=== PATIENT | male | born 1955 | race Caucasian/White ===

== ENCOUNTER 2021-06-25 11:09 | Outpatient (CLI) | payer MEDICARE, OTHER, SELFPAY ==
--- NOTE | 2021-06-25 11:00 | DI.RAD_ITS ---
Exam(s) XR KNEE RT 3V AP,LAT,VELASQUEZ EXAM: XR KNEE RT 3V AP,LAT,VELASQUEZ CLINICAL HISTORY: RIGHT KNEE PAIN. TECHNIQUE: 2D digital imaging was performed. COMPARISON: No exams were available for comparison FINDINGS: No evidence of fracture or prominent joint effusion. Mild degenerative changes are noted in the medi al compartment. Lateral compartment appears unremarkable. Bone density normal. No osseous lesions. IMPRESSION: Mild-moderate degenerative changes in the medial compartment. DATA REPOSITORY: RADIATION DOSE DELIVERED:
== END 2021-06-25 11:10 | disposition home or self-care (01) ==
LOC: DIORS 11:09
PROVIDERS: Visit Provider Student in an Organized Health Care Education/Training Program
DX: M25.561 Pain in right knee (principal); M17.11 Unilateral primary osteoarthritis, right knee
CPT/HCPCS: 20610; 73562; 99203; J1040

== ENCOUNTER 2024-01-07 18:04 | Inpatient (IN) | payer MEDICARE, OTHER, SELFPAY ==
[2024-01-07] VITALS (218 sets, daily range): BP systolic 113–170; BP diastolic 58–108; PULSE 42–87; RESP 11–23; TEMP 36.2–37.7; O2SAT 98–99
--- NOTE | 2024-01-07 18:00 | RT.EKG_ITS ---
APPROVED REPORT Exam: Resting ECG Reason for Exam: Chest Pain Patient Location: E HR:45 bpm ECG Measurements Heart Rate 45 AXIS AZ 289 P 80 QRSd 121 QRS 124 QT 488 T 40 QTc 423 Conclusion Sinus bradycardia...rate< 60 Prolonged AZ interval...AZ >230, V-rate 30- 49 Probable left atrial enlargement...P >50mS, <-0.10mV V1 Nonspecific intraventricular conduction delay...QRSd >115mS, not LBBB/RBBB
--- NOTE | 2024-01-07 18:15 | DI.RAD_ITS ---
Exam(s) XR CHEST 2V PA LATERAL EXAM: XR CHEST 2V PA LATERAL CLINICAL HISTORY: CP, SOB TECHNIQUE: 2D digital imaging was performed. Two views. COMPARISON: No exams were available for comparison FINDINGS: HEART: Normal size. Aorta: Not dilated. PULMONARY VASCULATURE: Normal. MEDIASTINUM: Unremarkable. LUNGS: Clear. PLEURAL SPACE: No pleural effusion or pneumothorax. BONE:Unremarkable for age. SOFT TISSUES: Unremarkable. IMPRESSION: No acute abnormality. DATA REPOSITORY: RADIATION DOSE DELIVERED:
--- NOTE | 2024-01-07 18:29 | W.ED.GENAD ---
Discharge Plan Discharge Details Chief Complaint: Chest Pain Admit Date/Time: 01/07/24 22:13 Admit Provider: Shadi Emmanuel Attending Provider: Shadi Emmanuel Primary Care Provider: [place] ED Provider: Trinh Ferraro Discharge Data Discharge Date/Time-TO BE ENTERED AT DEPARTURE: 01/07/24 23:30 HPI General Date/Time Provider Initiated Documentation: 01/07/24 18:14. HPI Narrative: Shadi is a 68-year-old male who presents to the emergency department today for evaluation of cough accompanied by shortness of breath and exertion x 3 weeks and left-sided chest pain x 1 week. He reports that he had viral symptoms including chills, headache, sore throat, mild cough 1 month ago, a few days after this resolved he developed a cough which has been persistent since then. This is a nonproductive cough, occasional scant sputum coughed up, no hemoptysis. He does have some shortness of breath with exertion only, none at rest. He reports he was taking trenches, attributes this to the left-sided chest pain that is worsened with standing or deep breathing, some movement. He denies recent fever/chills, dizziness, congestion, sore throat, nausea/vomiting, abdominal pain, change in bowel or bladder function, pedal edema, calf redness/swelling/tenderness, no recent surgery. No recent malignancy, immobility/surgery, hormone use, history of blood clots. Continue to have prostate cancer, has pain in remission 10 years. Denies significant past medical history, has been diagnosed with hyperlipidemia but is unable to tolerate statins.. Denies any insomnia for which he takes Lunesta and mirtazapine. Denies tobacco use Physical exam reassuring. Easy work of breathing, lung sounds clear bilaterally. Normal heart sounds. No obvious JVD or pedal edema. No chest wall tenderness with palpation or obvious deformity/ecchymosis or skin lesions. Abdomen is soft, nondistended, nontender to palpation. No calf redness/swelling/tenderness. Heart rate in the 70s on the monitor. DDx includes but is not limited to: Pneumonia, postviral bronchitis, ACS, cardiac arrhythmia, lyme endocarditis, electrolyte imbalance, chest wall pain/costochondritis. Heart score 3 indicating low risk of Mace. Wells score 0. I independently interpreted the following tests: EKG upon arrival @ 1733 notable for sinus bradycardia rate 45 with first-degree heart block, NM interval 294. Repeat EKG at 1837 shows accelerated junctional rhythm with rate 82, no changes consistent with acute ischemia. Troponin elevated at 194. CBC, CMP, TSH, phosphorus, coags all unremarkable. Chest x-ray reassuring, no acute cardiopulmonary changes. This was confirmed by radiologist. While in the emergency department she received 324 mg baby aspirin chewable and heparin initiated. He is currently chest pain-free. 2044: Discuss[place]. [place], [facility] [place]. He recommends atorvastatin 80 mg, Plavix 600 mg. Patient accepted for cardiology services. Care of Dr. Carnes; listing in the a.m. (may be transferred from [facility] unit) Presented case to Dr. Emmanuel, [facility] hospitalist. Pt to be admitted to ICU for observation until [place] [facility] [place] the [place]. Pt is agreeable with plan of care. Related Data Home Medications ?Medication ?Instructions ?Recorded ?Confirmed doxepin 10 mg capsule 10 mg PO DAILY 06/25/21 06/25/21 eszopiclone 3 mg tablet (Lunesta) mg PO QHS 06/25/21 06/25/21 Allergies Allergy/AdvReac Type Severity Reaction Status Date / Time aspirin Allergy diaphoresis Verified 06/25/21 10:53 General Stated Complaint: Chest Pain TIKA: 3 Review of Systems Narrative: see HPI Exam Const General: cooperative, healthy appearing, comfortable and no acute distress Nutritional Appearance: average body habitus HENCA Head: normal to inspection Neck Neck: normal visual inspection and no JVD Chest Chest: normal inspection of the chest and normal palpation of entire chest wall Resp Effort & Inspection: normal respiratory effort and able to speak in complete sentences Auscultation: clear to auscultation bilaterally Cardio Rate: regular rate Rhythm: regular rhythm Pulses: radial pulses present GI Inspection: normal to inspection and non-distended Palpation: soft and nontender Extrem General: no pedal edema, no calf tenderness and normal gait Course Vital Signs Vital signs: Vital Signs Respiratory Rate 16 01/07/24 18:10 Temperature 36.2 C L 01/07/24 18:13 Temperature Source Temporal Artery Scan 01/07/24 18:13 Pulse 45 L 01/07/24 18:13 Pulse 44 L 01/07/24 18:11 Respiratory Rate 16 01/07/24 18:13 Respiratory Effort Normal, Non-Labored, Short of Breath 01/07/24 18:15 Blood Pressure 170/91 H 01/07/24 18:13 Blood Pressure Mean 117 01/07/24 18:11 Blood Pressure Position Supine 01/07/24 18:13 Pulse Oximetry 98 01/07/24 18:13 Oxygen Delivery Method Room Air 01/07/24 18:13 Oxygen Flow Rate 0 01/07/24 18:13 Pain Level 3 01/07/24 18:13 Comment when coughing 01/07/24 18:13 Medical Decision Making Quality:SDOH Health Related Social Needs: No Data to Display PFSH All Active Problems (Updated 01/07/24 @ 22:12 by Shadi Emmanuel) Hyperlipidemia (Chronic) First degree atrioventricular block (Acute) Junctional bradycardia (Acute) NSTEMI (non-ST elevated myocardial infarction) (Acute) Primary osteoarthritis of right knee (Acute) Surgical History History of right shoulder replacement x2 Social History Smoking/Tobacco Use Status: Never Smoking risk assessment performed?: Yes Alcohol Intake: current Alcohol Intake frequency: holidays/special occasions only Alcohol type: beer Drug use: Never Substance use type: does not use Housing: house Do you feel safe at home: Yes Do you feel safe in your relationship?: Yes Additional Social history: at side, very supportive
--- NOTE | 2024-01-07 18:30 | RT.EKG_ITS ---
APPROVED REPORT Exam: Resting ECG Reason for Exam: Chest Pain Patient Location: E HR:82 bpm ECG Measurements Heart Rate 82 AXIS WA [id number] P [id number] QRSd 114 QRS 98 QT 426 T -14 QTc 499 Conclusion Accelerated junctional rhythm...absent P waves, accele'd V-rate Incomplete right bundle branch block...QRSd >112, terminal axis(90,270)
[2024-01-07 18:41] LABS: Abs Immature Grans 0.04 10^3/uL (0.0-0.06); Absolute Basophil Count 0.03 10^3/uL (0.0-0.2); Absolute Eosinophil Count 0.29 10^3/uL (0.0-0.7); Absolute Lymphocyte Count 1.63 10^3/uL (1.2-3.4); Absolute Neutrophil Count 5.14 10^3/uL (1.2-6.7); Basophils % 0.4 %; Eosinophils % 3.8 %; HCT 44.3 % (40.0-50.0); HGB 14.7 g/dL (13.5-17.5); Immature Grans % 0.5 %; Lymphocytes % 21.1 %; MCH 30.4 pg (27.0-33.0); MCHC 33.2 % (32.0-36.0); MCV 92 fL (80-95); Monocytes % 7.8 %; Neutrophils % 66.4 %; RBC 4.83 10^6/uL (4.36-5.78); RDW 13.5 % (11.8-14.1); RDW-SD 45.7 fL; WBC 7.73 10^3/uL (4.4-10.8)
--- NOTE | 2024-01-07 19:00 | RT.EKG_ITS ---
APPROVED REPORT Exam: Resting ECG Reason for Exam: abnormal EKG Patient Location: E HR:80 bpm ECG Measurements Heart Rate 80 AXIS GA [id number] P [id number] QRSd 112 QRS 101 QT 418 T 4 QTc 483 Conclusion Accelerated junctional rhythm...absent P waves, accele'd V-rate Incomplete right bundle branch block...QRSd >112, terminal axis(90,270)
[2024-01-07] MEDS: Normal Saline 1,000 ML 1000 ML IV (19:08)
[2024-01-07 19:29] LABS: PHOSPHORUS 3.2 mg/dL (2.6-4.7)
[2024-01-07 19:42] LABS: ALT 41 U/L (16-63); AST 22 U/L (15-37); Albumin 3.5 g/dL (3.4-5.0); Alkaline Phosphatase 98 U/L (46-116); Anion Gap 9.5 mmol/L (3-11); BUN 19 mg/dL (7-18); Bilirubin, Total 0.36 mg/dL (0.2-1.0); CO2 25.5 mmol/L (21.0-32.0); CREATININE 1.2 mg/dL (0.70-1.30); Calcium 8.6 mg/dL (8.5-10.1); Chloride 109 mmol/L (98-107); Estimated GFR 65.46 (mL/min/1.73m2); Glucose 108 mg/dL (74-106); Magnesium 2.1 mg/dL (1.8-2.4); Potassium 3.9 mmol/L (3.5-5.1); Sodium 144 mmol/L (136-145); TSH (W/Ref FT4) 3.36 uIU/mL (0.36-3.74); Total Protein 7.8 g/dL (6.4-8.2)
[2024-01-07 19:43] LABS: Troponin I 194 ng/L (< or =60)
--- NOTE | 2024-01-07 19:45 | RT.EKG_ITS ---
APPROVED REPORT Exam: Resting ECG Reason for Exam: PER ARIAN SCOTT Patient Location: E HR:83 bpm ECG Measurements Heart Rate 83 AXIS MN [id number] P [id number] QRSd 112 QRS 97 QT 413 T -11 QTc 485 Conclusion Accelerated junctional rhythm...absent P waves, accele'd V-rate Incomplete right bundle branch block...QRSd >112, terminal axis(90,270)
[2024-01-07] MEDS: Heparin in 0.45% NaCl 25,000 UNIT/250 ML BAG 10 UNIT IV (20:14)
--- NOTE | 2024-01-07 20:29 | DI.VRAD_ITS ---
PROCEDURE INFORMATION: Exam: XR Chest Exam date and time: 01/07/2024 7:34 PM Age: 68 years old Clinical indication: Shortness of breath; Chest wall pain; Additional info: ESTHER Dickens TECHNIQUE: Imaging protocol: Radiologic exam of the chest. Views: 2 views. COMPARISON: No relevant prior studies available. FINDINGS: Lungs: Unremarkable. No consolidation. Pleural spaces: Unremarkable. No pleural effusion. No pneumothorax. Heart/Mediastinum: Unremarkable. No cardiomegaly. Bones/joints: Mild degenerative changes of the midthoracic spine. No vertebral body compression or acute fracture. Right humeral head prosthesis in place. IMPRESSION: No acute disease Dictated and Authenticated by: Christiano Lanier MD. Ordering:MARY ANN Tsang MD
[2024-01-07 20:30] LABS: PTT Activated 25.9 sec (23.6-32.8); Prothrombin Time 10.4 sec (9.1-11.1)
--- NOTE | 2024-01-07 21:59 | W.PM.HP.N ---
Date of service: 01/07/24 Time of Service: 22:00 Assessment and Plan Assessment and plan (1) NSTEMI (non-ST elevated myocardial infarction): Start date: 01/07/24 Status: Acute Assessment and plan: This is a 68-year-old gentleman who has had gradual onset of symptoms with exertional chest discomfort and elevated troponin after evaluation in the ED presenting with his chest discomfort. 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 Stat EKG and chest x-ray were ordered and will be reviewed with update to [facility] if a change status. He appears to be comfortable at this time and chest pain-free with no symptoms. He is on heparin infusion and did receive aspirin with Plavix loading dose along with high-dose atorvastatin. He is excepted for transfer to [facility] when bed. See ED note for accepting physician. He is a full code. (2) Junctional bradycardia: Start date: 01/07/24 Status: Acute Assessment and plan: Transient and resolved the patient persists with first-degree AV block and bradycardia until episode of vagal response. He is tachycardic. He is not on beta-arslan, monitor while awaiting transfer. (3) First degree atrioventricular block: Start date: 01/07/24 Status: Acute Assessment and plan: Continue monitoring awaiting transfer. When he did have a vagal response and hypotension he was tachycardic and bradycardic therefore atropine was given. (4) Hyperlipidemia: Status: Chronic Assessment and plan: Check lipids in the morning and give high-dose atorvastatin. Qualifiers: Hyperlipidemia type: other hyperlipidemia Qualified Code(s): E78.49 - Other hyperlipidemia History of Present Illness History of Present Illness Chief Complaint: Exertional chest pain for 1 week with LEWIS and cough for 3 weeks Narrative: This is a 68-year-old male patient who had a sore throat and upper respiratory symptoms about 1 month ago and then began to have a cough with increasing shortness of breath with exertion over the last 3 weeks. He has had left-sided chest pain for the last week with exertion. It is mostly nonproductive with scant sputum no hemoptysis. He had no shortness of breath at rest and no fever or chills or abdominal symptoms. He has had no symptoms. He had prostate cancer 10 years ago which is in remission. He has a history of hyperlipidemia not on treatment because of intolerance to statins. He does have insomnia for which he takes Remeron and Lunesta. He is not a smoker. 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 His chest it was also worsened with movement and deep breathing being upright. He was chest pain-free at the time of my visit and was speaking comfortably. Overnight he was well but in the morning when he had a blood draw he had a sudden onset of nausea with diaphoresis but no chest pain. His blood pressure dropped though his pulse increased with sinus bradycardia and first-degree AV block mostly at night. He did not have any junctional rhythms during the night. He has the heparin for non-STEMI from the ED after discussion with [facility] with plan for transfer to [facility] when bed is available for cardiac catheterization. I will call [facility] update with his recent vagal response with the phlebotomy the morning after admission. He is a full code. Review of Systems Narrative: 13 point review of systems otherwise unrevealing or stable. Patient minimizes his symptoms. PFSH All Active Problems (Updated 01/08/24 @ 00:01 by Trinh Coleman) Hyperlipidemia (Chronic) First degree atrioventricular block (Acute) Junctional bradycardia (Acute) NSTEMI (non-ST elevated myocardial infarction) (Acute) Primary osteoarthritis of right knee (Acute) Surgical History History of right shoulder replacement x2 Social History Smoking/Tobacco Use Status: Never Smoking risk assessment performed?: Yes Alcohol Intake: current Alcohol Intake frequency: holidays/special occasions only Alcohol type: beer Drug use: Never Substance use type: does not use Housing: house Do you feel safe at home: Yes Do you feel safe in your relationship?: Yes Additional Social history: at side, very supportive Meds Allergies and Home Medications Allergies Allergy/AdvReac Type Severity Reaction Status Date / Time aspirin Allergy diaphoresis Verified 06/25/21 10:53 Home Medications ?Medication ?Instructions ?Recorded ?Confirmed ?Type atorvastatin 10 mg tablet 10 mg PO QPM hyperlipidemia 01/08/24 01/08/24 History eszopiclone 2 mg tablet 2 mg PO QPM 01/08/24 01/08/24 History Exam Narrative Exam Narrative: General: Patient appears older than stated age, alert and oriented x 3 and jovial during conversation even after his vagal event. He is in no acute distress at time of my initial exam with moderate distress with episode of diaphoresis hypotension with resolution quickly after onset. He did not complain of chest pain. HEENT: Normocephalic, coarsened facial features, eyes with pupils equal and react light symmetrically, extraocular movement intact and sclera anicteric. Oropharynx with moist Koza and fair dentition. Neck: Supple without JVD. Back: Stooped posture without CVA tenderness. Lungs: Fair aeration and clear. Heart: Bradycardic rate with regular rhythm and question of gallop though this cannot be clearly identified but no murmur appreciated. No rubs. Abdomen: Normal contour, soft nontender to palpation with no palpable hepatosplenomegaly. Lower quadrant. Genitalia/rectal: Exam deferred. Extremities: Without clubbing, cyanosis or pitting edema. Joints with arthritic changes and decreased range of motion. Fair capillary refill. 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 Rough texture with actinic changes over sun exposed areas. Neuro: Cranial nerves II through XII gross intact, no focal motor deficits. No tremor. Psych: Normal affect and mood. Abnormal thought processes. Remote and recent memory intact. Results Imaging Imaging Studies: Exam: XR Chest Exam date and time: 01/07/2024 7:34 PM Age: 68 years old Clinical indication: Shortness of breath; Chest wall pain; Additional info: Maninder, ESTHER TECHNIQUE: Imaging protocol: Radiologic exam of the chest. Views: 2 views. COMPARISON: No relevant prior studies available. FINDINGS: Lungs: Unremarkable. No consolidation. Pleural spaces: Unremarkable. No pleural effusion. No pneumothorax. Heart/Mediastinum: Unremarkable. No cardiomegaly. Bones/joints: Mild degenerative changes of the midthoracic spine. No vertebral body compression or acute fracture. Right humeral head prosthesis in place. IMPRESSION: No acute disease Labs 01/07/24 18:31 01/07/24 19:07 Labs: Laboratory Results - last 24 hr 01/07/24 01/07/24 01/07/24 18:31 19:07 20:11 WBC 7.73 RBC 4.83 Hgb 14.7 Hct 44.3 MCV 92 MCH 30.4 MCHC 33.2 RDW 13.5 Plt Count MPV Immature Gran % 0.5 Neutrophils % 66.4 Lymphocytes % 21.1 Monocytes % 7.8 Eosinophils % 3.8 Basophils % 0.4 Nucleated RBC % 0.0 Absolute Neutrophils 5.14 Absolute Lymphocytes 1.63 Absolute Monocytes 0.60 Absolute Eosinophils 0.29 Absolute Basophils 0.03 PT 10.4 INR 1.0 APTT 25.9 Sodium Cancelled 144 Potassium Cancelled 3.9 Chloride Cancelled 109 H Carbon Dioxide Cancelled 25.5 Anion Gap Cancelled 9.5 BUN Cancelled 19 H Creatinine Cancelled 1.2 Est GFR (CKD-EPI 2020) Cancelled 65.46 Glucose Cancelled 108 H Calcium Cancelled 8.6 Phosphorus 3.2 Magnesium Cancelled 2.1 Total Bilirubin Cancelled 0.36 AST Cancelled 22 ALT Cancelled 41 Alkaline Phosphatase Cancelled 98 Troponin I Cancelled 194 H* Total Protein Cancelled 7.8 Albumin Cancelled 3.5 TSH Cancelled 3.36 Last Vital Signs Temp 36.2 C L 01/07/24 18:13 Pulse 56 L 01/07/24 21:16 Resp 20 01/07/24 21:27 BP 121/72 01/07/24 21:16 Pulse Ox 98 01/07/24 18:13 Time Spent Time spent with Patient: >75 minutes Time was spent: preparing to see the patient(eg.review tests), obtaining and/or reviewing separately otained hiistory, ordering medications,tests, procedures, referring, communicating with other health health care liaison, indepentently interpreting results, counseling the patient and care coordination
[2024-01-07] MEDS: Clopidogrel 300 MG TAB 600 MG PO (22:06)
[2024-01-07 22:09] LABS: Troponin I 177 ng/L (< or =60)
[2024-01-07] MEDS: Atorvastatin 40 MG TAB 80 MG PO (23:04)
[2024-01-08] VITALS (80 sets, daily range): BP systolic 84–154; BP diastolic 50–76; PULSE 38–78; RESP 11–24; TEMP 36.8–37.9; O2SAT 90–98
[2024-01-08] MEDS: Mirtazapine 15 MG TAB 22.5 MG PO (01:29)
[2024-01-08] MEDS: Eszopiclone 3 MG TAB PO (01:32)
[2024-01-08 01:58] LABS: COVID-19 PCR Negative (Negative); Influenza A PCR Negative (Negative); Influenza B PCR Negative (Negative); RSV PCR Negative (Negative); Source Nasopharynx
[2024-01-08 02:30] LABS: PTT Activated 41.7 sec (23.6-32.8)
[2024-01-08 02:36] LABS: Troponin I 178 ng/L (< or =60)
--- NOTE | 2024-01-08 06:00 | RT.EKG_ITS ---
APPROVED REPORT Exam: Resting ECG Reason for Exam: nausea, diaphoresis Patient Location: I HR:40 bpm ECG Measurements Heart Rate 40 AXIS PA 172 P 0 QRSd 113 QRS 122 QT 453 T 19 QTc 368 Conclusion AV dissociation
--- NOTE | 2024-01-08 06:15 | DI.RAD_ITS ---
Exam(s) XR PORTABLE CHEST AP EXAM: XR PORTABLE CHEST AP CLINICAL HISTORY: nausea, diaphoresis TECHNIQUE: 2D digital imaging was performed. COMPARISON: CR,XR XR CHEST 2V PA LATERAL from 01/07/2024 FINDINGS: LUNGS: Clear. No pleural abnormality seen. HEART: Normal size. AORTA: Normal diameter. BONES: Unremarkable right shoulder prosthesis. Soft tissues: Unremarkable. IMPRESSION: No acute findings. DATA REPOSITORY: RADIATION DOSE DELIVERED:
--- NOTE | 2024-01-08 06:44 | NUR.NOTE ---
0600-Patient has had his blood drawn. suddenly c/o diaphoresis, extreme nausea and looked quite anxious. heart rate suddenly increased from 38-40 to 70's. BP-84/50. temp of 36.8 which has come down from 37.9 earlier. patient given a bucket in case of emesis. Dr. Emmanuel called the August who works in access. Pt still c/o the same symptoms. Has been incontinent but then used the urinal for 400cc's. Dr. Joaquin called and after given report by nurse ordered 500cc bolus of NS, stat EKG, zofran and stat PCXR. RT came to do the EKG. Pt is now stating he feels better and is less diaphoretic. Nausea has left. ekg done. zofran held as nausea has resolved. 0617-Dr. Emmanuel came to the ICU. spoke with pt who was feeling better by now. BP113/63. 97% on RA. heart rates are vacilating between 30's and 70's. This nurse spoke with Dr. Emmanuel concerning transfer to [facility] [place]. 0632-radiology is here and does the portable chest xray. pt still feeling better.
[2024-01-08 06:59] LABS: HGB 13.3 g/dL (13.5-17.5); MCH 30.5 pg (27.0-33.0); MCHC 34.1 % (32.0-36.0); MCV 89 fL (80-95); MPV 10.6 fL (8.0-11.0); Platelet Count 199 10^3/uL (130-400); RBC 4.36 10^6/uL (4.36-5.78); RDW 13.5 % (11.8-14.1); RDW-SD 44.3 fL; WBC 6.89 10^3/uL (4.4-10.8)
[2024-01-08] MEDS: Normal Saline 1,000 ML 1000 ML IV (06:59)
[2024-01-08 07:13] LABS: ALT 32 U/L (16-63); AST 17 U/L (15-37); Albumin 2.9 g/dL (3.4-5.0); Alkaline Phosphatase 81 U/L (46-116); BUN 15 mg/dL (7-18); Bilirubin, Total 0.56 mg/dL (0.2-1.0); Calcium 8.4 mg/dL (8.5-10.1); Calculated LDL 118 mg/dL (<100); Chloride 107 mmol/L (98-107); Cholesterol 186 mg/dL (<200); Estimated GFR 81.47 (mL/min/1.73m2); Glucose 115 mg/dL (74-106); HDL Cholesterol 39 mg/dL (40-60); Potassium 3.7 mmol/L (3.5-5.1); Sodium 141 mmol/L (136-145); Total Protein 6.8 g/dL (6.4-8.2); Triglyceride 146 mg/dL (<150)
[2024-01-08 07:18] LABS: Anion Gap 9.6 mmol/L (3-11); CO2 24.4 mmol/L (21.0-32.0)
[2024-01-08 07:21] LABS: Troponin I 162 ng/L (< or =60)
--- NOTE | 2024-01-08 08:45 | RT.EKG_ITS ---
APPROVED REPORT Exam: Resting ECG Reason for Exam: Rhythm change Patient Location: I HR:77 bpm ECG Measurements Heart Rate 77 AXIS TN [id number] P [id number] QRSd 114 QRS 97 QT 510 T 15 QTc 577 Conclusion Atrial fibrillation...? atrial activity Incomplete right bundle branch block...QRSd >112, terminal axis(90,270) Prolonged QT interval...QTc >500mS
--- NOTE | 2024-01-08 09:47 | INITIAL_ITS ---
Date of service: 01/08/24 Time of Service: 09:47 Care Management Initial Assmt Initial Assessment Reason for Hospitalization: NSTEMI, Junctional bradycardia, HRT block Functional Status/Living Situation Patient Presentation: Shadi was awake and lying in bed when CM met with him. He is being closely monitored in the ICU, with a plan to transfer [place] [facility] [place]. Shadi is accompanied by his . Town of Residence: [place] Resides with: Spouse Instrumental Activities of Daily Living (ADLs): Independent Medications Medication Management: No Issues/Barriers identified Physical Functioning/Mobility Assistive Device: None Advance Directives Advance Directives: Do you have an Advance Directive: N 12/18/14 21:24 AD On File at [facility]: N 12/18/14 21:24 Date Asked 01/07/24 01/07/24 18:07 AD Date Reviewed COLST On File at [facility] No 01/07/24 20:20 COLST Date Scanned Code Status Resuscitation Status Full Code Insurance Coverage/Financial Issues Insurance: Medicare T[facility]are [facility] [address] [facility] ER on 01/07/24 and plan to transfer to [facility] for NSTEMI, Junctional bradycardia, HRT block Reference : [id number] Financial Issues: None identified. Care Team Visit Care Team Role Provider Type [facility] Primary Care Provider REPORT RECIPIENT Trinh Coleman Emergency Provider NURSE PRACTITIONER Shadi Emmanuel Admit Provider NON-[facility] STAFF PHYSICIAN Attending Provider Discharge Patient/Family Education Needs: Review discharge instructions, discuss Ask Me Three Transportation: EMS Plan: Per Dr. Ramirez: Transfer to [facility] to service of Dr. Shadi Carnes pending bed availability. CM notified [facility] All Active Problems (Updated 01/08/24 @ 11:16 by Charles Ramirez MD) Third degree AV block (Acute) Cough (Acute) Hyperlipidemia (Chronic) First degree atrioventricular block (Acute) Junctional bradycardia (Acute) NSTEMI (non-ST elevated myocardial infarction) (Acute) Primary osteoarthritis of right knee (Acute) Surgical History History of right shoulder replacement x2 Social History Smoking/Tobacco Use Status: Never Smoking risk assessment performed?: Yes Alcohol Intake: current Alcohol Intake frequency: holidays/special occasions only Alcohol type: beer Drug use: Never Substance use type: does not use Housing: house Do you feel safe at home: Yes Do you feel safe in your relationship?: Yes Additional Social history: at side, very supportive SDOH(Care Management) Screening Will the Patient Participate in the Screening?: Yes Do you worry about having a steady place to live?: no In the past 12 months, have you had to go without electric, gas, oil or water in your home?: no Have you or anyone in your house had to go without enough food to eat?: no Has lack of transportation kept you from medical appointments or from doing things needed for daily living?: no Has anyone in your support network made you feel unsafe for any reason?: no
--- NOTE | 2024-01-08 09:47 | PDOC.CMDIS ---
Date of service: 01/08/24 Time of Service: 09:47 LACE Index Scoring Tool Questions: Length of Stay (in days): 1 Was the patient admitted via the E.D.?: Yes E.D. Visits: 1 Answers: Total Score: 5 Risk of Readmission: Low Risk Care Management Discharge Plan Reason for Hospitalization: NSTEMI Discharge Plan: Plan is [place] [facility] [place] service of Dr. Shadi Carnes upon bed availability. Patient/Family Education Needs: Review transfer instructions, Discuss ask me three. SDOH Health Related Social Needs: No Data to Display
--- NOTE | 2024-01-08 10:00 | DI.VRAD_ITS ---
PROCEDURE INFORMATION: Exam: XR Chest Exam date and time: 01/08/2024 6:42 AM Age: 68 years old Clinical indication: Other: Nausea, diaphoresis TECHNIQUE: Imaging protocol: Radiologic exam of the chest. Views: 1 view. COMPARISON: CR XR CHEST 2V PA LATERAL 01/07/2024 7:34 PM FINDINGS: Lungs: No new focal infiltrates seen of the lungs. Pleural spaces: No large or obvious pneumothorax nor pleural effusion seen. Heart/Mediastinum: Heart size appears upper limits of normal. Vasculature: Atherosclerotic disease aorta. Bones/joints: Partial arthroplasty/right humeral head prosthesis partially included. Arthritic changes left shoulder. Degenerative changes spine. IMPRESSION: No acute findings seen of the chest. Dictated and Authenticated by: Shadi Munoz MD. Ordering:NIKOLAY Hsu MD
[2024-01-08 10:10] LABS: PTT Activated 55.5 sec (23.6-32.8)
--- NOTE | 2024-01-08 10:21 | W.PM.PROGNOT ---
Date of Service Date of service: 01/08/24 Time of Service: 10:21 Assessment and Plan Assessment and plan (1) NSTEMI (non-ST elevated myocardial infarction): Start date: 01/07/24 Status: Acute Assessment and plan: EKG did not show any ST elevation, however he has had a minimal elevation of his troponin levels but it appears to have plateaued and is declining now. Peak of 194 on admission and now down to 162. serial EKG have been done. Rhythm appears to be junctional at 40 bpm but he has p waves at 75 bpm, this appears to be 3rd degree AV block. I have had nursing put on external pacer pads. He is not hypotensive and other than the cough, feels fine. Critical care time spent interviewing and examining the patient, reviewing studies, discussing case with patient's nurse and consulting physicians was 45 minutes (2) Junctional bradycardia: Start date: 01/07/24 Status: Acute Assessment and plan: rhythm appears to be juntional at 40 bpm and at times he accelerates to 75 bpm but still junctional. He has p waves that are at a rate of 75 bpm while his ventricular response is only 40 bpm. (3) Hyperlipidemia: Status: Chronic Assessment and plan: Check lipids in the morning and give high-dose atorvastatin. Qualifiers: Hyperlipidemia type: other hyperlipidemia Qualified Code(s): E78.49 - Other hyperlipidemia (4) Cough: Status: Acute Assessment and plan: he has had a cough since he had a cold 5 weeks ago. cough is nonproductive. I think he either has Pertussis or had a viral illness w/ persistent cough. A viral illness could have caused a myocarditis which would explain the AV block. I will put him on tessalon perles for his cough and prn Tussionex, I will check pertusssis antibodies and give him a course of Bactrim. Qualifiers: Cough type: subacute Qualified Code(s): R05.2 - Subacute cough Subjective Subjective Interval history since last seen: See admission H&P for details. Shadi states that the only CP he has had is over anterior chest that is reproducible w/ coughing. he relates that he has had a cough for about 5 weeks every since he had a cold. However he has had recent onset of exertional dyspnea over past couple weeks, particularly noted by his . Patient attributes this to age, however his says that he has had a dramatic change in his exercise tolerance over past month. Exam Narrative Exam Narrative: Shadi is alert, oriented, no acute distress other than dry nonproductive cough HEENT: unremarkable, neck supple, no JVD Lungs: clear Heart: bradycardia (monitor shows juntional rhythm in 40's, there appears to be heart block on recent rhythm strips either 2nd degree type II AV block but to me this appears more likely 3rd degree AV block) Chest wall tender to palpation over parasternal areas, he has external pacer pads applied to his chest Objective Last Vital Signs Temp 36.8 C 01/08/24 07:30 Pulse 40 L 01/08/24 09:25 Resp 15 01/08/24 09:25 BP 105/62 01/08/24 09:25 Pulse Ox 97 01/08/24 09:25 Laboratory Results - last 24 hr 01/07/24 01/07/24 01/07/24 18:31 19:07 20:11 WBC 7.73 RBC 4.83 Hgb 14.7 Hct 44.3 MCV 92 MCH 30.4 MCHC 33.2 RDW 13.5 Plt Count MPV Immature Gran % 0.5 Neutrophils % 66.4 Lymphocytes % 21.1 Monocytes % 7.8 Eosinophils % 3.8 Basophils % 0.4 Nucleated RBC % 0.0 Absolute Neutrophils 5.14 Absolute Lymphocytes 1.63 Absolute Monocytes 0.60 Absolute Eosinophils 0.29 Absolute Basophils 0.03 PT 10.4 INR 1.0 APTT 25.9 Sodium Cancelled 144 Potassium Cancelled 3.9 Chloride Cancelled 109 H Carbon Dioxide Cancelled 25.5 Anion Gap Cancelled 9.5 BUN Cancelled 19 H Creatinine Cancelled 1.2 Est GFR (CKD-EPI 2020) Cancelled 65.46 Glucose Cancelled 108 H Calcium Cancelled 8.6 Phosphorus 3.2 Magnesium Cancelled 2.1 Total Bilirubin Cancelled 0.36 AST Cancelled 22 ALT Cancelled 41 Alkaline Phosphatase Cancelled 98 Troponin I Cancelled 194 H* Total Protein Cancelled 7.8 Albumin Cancelled 3.5 Triglycerides Total Cholesterol LDL Cholesterol, Calc HDL Cholesterol TSH Cancelled 3.36 COVID-19 Source SARS-CoV-2 (PCR) Influenza Type A (PCR) Influenza Type B (PCR) RSV (PCR) 01/07/24 01/08/24 01/08/24 21:27 00:12 02:05 WBC RBC Hgb Hct MCV MCH MCHC RDW Plt Count MPV Immature Gran % Neutrophils % Lymphocytes % Monocytes % Eosinophils % Basophils % Nucleated RBC % Absolute Neutrophils Absolute Lymphocytes Absolute Monocytes Absolute Eosinophils Absolute Basophils PT INR APTT 41.7 H Sodium Potassium Chloride Carbon Dioxide Anion Gap BUN Creatinine Est GFR (CKD-EPI 2020) Glucose Calcium Phosphorus Magnesium Total Bilirubin AST ALT Alkaline Phosphatase Troponin I 177 H* 178 H* Total Protein Albumin Triglycerides Total Cholesterol LDL Cholesterol, Calc HDL Cholesterol TSH COVID-19 Source Nasopharynx SARS-CoV-2 (PCR) Negative Influenza Type A (PCR) Negative Influenza Type B (PCR) Negative RSV (PCR) Negative 01/08/24 01/08/24 05:50 09:12 WBC 6.89 RBC 4.36 Hgb 13.3 L Hct 39.0 L MCV 89 MCH 30.5 MCHC 34.1 RDW 13.5 Plt Count 199 MPV 10.6 Immature Gran % Neutrophils % Lymphocytes % Monocytes % Eosinophils % Basophils % Nucleated RBC % Absolute Neutrophils Absolute Lymphocytes Absolute Monocytes Absolute Eosinophils Absolute Basophils PT INR APTT 55.5 H Sodium 141 Potassium 3.7 Chloride 107 Carbon Dioxide 24.4 Anion Gap 9.6 BUN 15 Creatinine 1.0 Est GFR (CKD-EPI 2020) 81.47 Glucose 115 H Calcium 8.4 L Phosphorus Magnesium Total Bilirubin 0.56 AST 17 ALT 32 Alkaline Phosphatase 81 Troponin I 162 H* Total Protein 6.8 Albumin 2.9 L Triglycerides 146 Total Cholesterol 186 LDL Cholesterol, Calc 118 H HDL Cholesterol 39 L TSH COVID-19 Source SARS-CoV-2 (PCR) Influenza Type A (PCR) Influenza Type B (PCR) RSV (PCR) PAWSS Have you Been Recently Intoxicated or Drunk Within the Last 30 days?: No Have you Ever Experienced Previous Episodes of Alcohol Withdrawal?: No Have you ever Experienced Withdrawal Seizures?: No Have you ever Experienced Delirium Tremens(DT)s?: No Have you ever undergone Alcohol Rehabilitation Treatment (i.e, inpt ot outpatient treatment programs)?: No Have you ever Experienced Blackouts?: No Have you ever Combined Alcohol with other Downers within the last 90 days?: No Have you ever Combined Alcohol with any other Substance of Abuse during the last 90 days?: No Positive Blood Alcohol level on Presentation? [PCS.BAL]: No Evidence of Increased Autonomic Activity (i.e. HR>120, tremor, sweating, agitation, nausea)?: No Result: 0 Time Spent with Patient Time Spent with Patient: 35-49 minutes Time was spent: preparing to see the patient(eg.review tests), obtaining and/or reviewing separately otained hiistory, ordering medications,tests, procedures, referring, communicating with other health director of primary care, indepentently interpreting results, counseling the patient and care coordination
--- NOTE | 2024-01-08 10:43 | PHACLINREV_ITS ---
Pharmacy Admission Review Admission Clinical Review Admission Pharmacy Review: First degree atrioventricular block (Acute) Junctional bradycardia (Acute) NSTEMI (non-ST elevated myocardial infarction) (Acute) aspirin Allergy (Verified 06/25/21 10:53) diaphoresis Resuscitation Status Full Code Height 5 ft 9 in Weight 95.1 kg Comments Comments/Follow Ups: Plan for transfer to [facility] once bed is available per H+P Pharmacy Admission Review Renal Dosing Renal Dosing: BUN 15 mg/dL (7-18) 01/08/24 05:50 Creatinine 1.0 mg/dL (0.70-1.30) 01/08/24 05:50 Medications needing adjustments: Reviewed (CrCl 79.3 mL/min) List of meds needing interventions: Current medications are okay Anticoagulation Anticoagulation: Hgb 13.3 g/dL (13.5-17.5) L 01/08/24 05:50 Hct 39.0 % (40.0-50.0) L 01/08/24 05:50 Plt Count 199 10^3/uL (130-400) 01/08/24 05:50 INR 1.0 (0.9-1.1) 01/07/24 20:11 Creatinine 1.0 mg/dL (0.70-1.30) 01/08/24 05:50 Therapeutic Anticoagulation: Reviewed (Hgb decreased from 14.7) Medications: Heparin (infusion for NSTEMI) Opiate Usage Evaluate Pain Scale/Pains Meds: Reviewed (Tussinex suspension PRN for cough) Scheduled Bowel Reg ordered if on Opiates?: No (PRN Miralax) Relevant Labs Relevant Labs: Sodium 141 mmol/L (136-145) 01/08/24 05:50 Potassium 3.7 mmol/L (3.5-5.1) 01/08/24 05:50 Chloride 107 mmol/L (98-107) 01/08/24 05:50 Phosphorus 3.2 mg/dL (2.6-4.7) 01/07/24 19:07 Magnesium 2.1 mg/dL (1.8-2.4) 01/07/24 19:07 Electrolytes, C-Reactive P, ESR: Reviewed (glucose 115) Cardiac Review Cardiac Review: Troponin I 162 ng/L (< or =60) H* 01/08/24 05:50 Blood Pressure [Right Arm] 97/59 Blood Pressure [Right Arm] 113/71 Blood Pressure 105/62 0925 Blood Pressure 106/71 0900 Blood Pressure 96/60 0841 Blood Pressure 106/65 0740 Blood Pressure 113/63 0633 Blood Pressure 84/50 0607 Blood Pressure 97/59 0501 Blood Pressure 90/60 0450 BP, HR, EF%: Reviewed (HR 40 - ranging in the low 40's all morning, troponin: 194 -> 177 -> 178 -> 162) QTc Review QTc: Reviewed (485 from 01/07/24 - 2 more reports pending) IV to PO Switch IV Medications: Reviewed (Heparin infusion) Home Meds Home Med List reviewed: Reviewed Relevent Home Meds Not ordered & why?: Had order for Lunesta but was discontinued today by provider Current Meds Current Medication Order Review: Intervened Comments: Patient received 600mg of clopidogrel last night. Per UpToDate, 600mg before PCI and then 75mg daily after PCI. Confirmed with provider as the 75mg order was put in to start this morning, patient to be transferred to [facility] for PCI. Provider stated they wanted the 75mg dose to start today. Pharmacy Antibiotic Review Relevant Labs: WBC 6.89 10^3/uL (4.4-10.8) 01/08/24 05:50 Temperature 36.8 C 0730 Temperature 37.9 C 0450 Temperature 37.7 C Pharmacy Antibiotic Activity: Reviewed, no change Comments: Patient was started on Bactrim PO BID today. No cultures pending. Did have an elevated temperature today at 0450. Comments Comments/Follow Ups: Plan for transfer to [facility] once bed is available per H+P
[2024-01-08] MEDS: Sulfameth/Trimeth DS TAB 1 TAB PO (10:56)
[2024-01-08] MEDS: Benzonatate 200 MG CAP PO (10:56)
[2024-01-08] MEDS: Clopidogrel 75 MG TAB PO (10:56)
[2024-01-08] MEDS: Normal Saline Flush 10 ML SYR IVP (10:58)
--- NOTE | 2024-01-08 11:14 | DSE_ITS ---
Date of service: 01/08/24 Time of Service: 11:14 DS: Diagnosis Discharge Diagnosis (1) NSTEMI (non-ST elevated myocardial infarction): Status: Acute Asessment and Plan: patient presented w/ recent onseto of exertional dyspnea and elevated troponin I level (peak 194 on admission and has since declined to 162), EKG did not have acute ST elevation or depression but rhythm has been junctional bradycardia at 40 bpm but there is evidence for 3rd degree AV block as there is P wave activity at rate of 75 bpm. Patient has chest pain that has been present for weeks and is anterior chest wall tenderness exacerbated by persistent nonproductive cough he has developed since he had URI 4 to 5 weeks ago. [facility] [place] was contacted by the ED provider on presentation. MAGDALENA Rachel contacted Dr. Martinez who reviewed the case and accepted the patient for transfer to [facility] to service of Dr. Shadi Carnes upon bed availability. Patient was given loading dose of Plavix 600 mg and begun on heparin drip. ASA was advised but not given d/t patient allergic reaction to aspirin. (2) Junctional bradycardia: Status: Acute Asessment and Plan: patient remains in junctional rhythm at 40 bpm w/ intermittent acceleration to rates of 75 bpm. External pacer pads have been applied but not activated as he has been hemodynamically stable (3) Hyperlipidemia: Status: Chronic Asessment and Plan: lipids levels checked and poorly controlled despite he was on atorvastatin at home at dose of 10 mg daily. He was given atorvastatin 80 mg. Total cholesterol 186, LDL 118, TG 146 and HDL 39. (4) Cough: Status: Acute Asessment and Plan: fran post viral however Pertussis titer sent and patient empirically put on Bactrim DS for possible pertussis (5) Third degree AV block: Status: Acute Asessment and Plan: see above. patient has not required pacing Discharge Plan Disposition Patient Disposition: Transfer-Acute Inpatient Care Specific Acute In Facility: [facility] Condition: Serious Discharge Details Reason For Visit: NSTEMI with junctional bradycardia Admit Date/Time: 01/07/24 22:13 Admit Provider: Shadi Emmanuel Attending Provider: Shadi Emmanuel Primary Care Provider: [facility] Hospital Course Hospital Course: 68-year-old male non-smoker with a history of sore throat and upper respiratory symptoms that occurred about 4 to 5 weeks ago on his left him with a chronic nonproductive cough no fevers or chills or hemoptysis or sputum production. However over the last couple weeks has had progressive exertional dyspnea. He has been complaining of left-sided chest wall tenderness worse with coughing. Evaluation emergency department showed that he was in junctional bradycardia rate of 40 bpm with either second-degree AV block type II or third-degree AV block although the admitting hospitalist called as a first-degree AV block however the NE intervals are too long to be a first-degree AV block there are over 680 ms between P waves and QRS. At times he will accelerate and go into an accelerated junctional rhythm at 75 bpm but most the time his heart rate is at 40 bpm while the P wave conduction rate is at 75 bpm he has been hemodynamically stable although workup last night revealed that he had elevated troponin levels which are now declining peak troponin was 194 on admission with subsequent levels of 177 and 178 and this morning is down to 162. There is been no ST segment elevation or ST depression on his EKG. Lipid levels were checked found to be mildly elevated with an LDL of 118 total cholesterol 186 triglycerides 146 and HDL of 39. Electrolytes are normal CBC was normal. [facility] was contacted by the ED provider Trinh Garrido who spoke with Dr. Martinez from cardiology at [facility] last night and discussed transfer. Patient was accepted to the service of Dr. Shadi carnes pending bed availability. Patient was started on heparin systemically and loaded with Plavix. Aspirin was given be given but patient has an allergic reaction to aspirin. Patient remains hemodynamically stable. I suspect that his cough is either due to a viral illness or possibly due to pertussis. Pertussis titers were sent and are pending. Patient was empirically started on Bactrim although it may be too late in the course to make a difference with the Bactrim except that if he is positive for pertussis he could decrease his carrier status. Patient was started on Tessalon Perles for his cough. Chest x-ray on admission showed no acute cardiopulmonary findings. Does show evidence of a previous right shoulder prosthesis. Home Meds and New Rx's Prescriptions: No Action eszopiclone 2 mg tablet 2 mg PO QPM atorvastatin 10 mg tablet 10 mg PO QPM Patient Comments: given in ER Discharge Instructions Activity:: Bedrest Equipment/Supplies:: No Equipment Needed Diet:: Cardiac DS: Summary Time Spent with Patient providing and/or coordinating discharge services: Greater than 30 minutes Specific discharge activities: Interview/exam of patient, educating patient and/ or family about need for transfer and alternative treatment options, coordination of transfer w/ receiving facility and discussion of case w/ accepting provider(s), completion of transfer orders and discharge summary Status at Discharge Functional status at discharge: independent ambulation Overall status at discharge: patient is not back to baseline Mental Status: mental status grossly normal Speech and Movement: speech and movement normal Mood: congruent mood Affect: normal affect Quality:SDOH Health Related Social Needs: No Data to Display Exam Narrative Exam Narrative: Shadi is alert, oriented, no acute distress other than dry nonproductive cough HEENT: unremarkable, neck supple, no JVD Lungs: clear Heart: bradycardia (monitor shows juntional rhythm in 40's, there appears to be heart block on recent rhythm strips either 2nd degree type II AV block but to me this appears more likely 3rd degree AV block) Chest wall tender to palpation over parasternal areas, he has external pacer pads applied to his chest Psych Mental Status: mental status grossly normal Speech and Movement: speech and movement normal Mood: congruent mood Affect: normal affect DS: Data Vitals/I&O Vitals and I&O: Vital Signs Temperature 36.8 C 01/08/24 07:30 Temperature Source Temporal Artery Scan 01/08/24 07:30 Pulse 40 L 01/08/24 09:25 Pulse 44 L 01/08/24 09:25 Respiratory Rate 15 01/08/24 09:25 Respiratory Effort Normal, Non-Labored 01/08/24 07:30 Respiratory Depth Normal 01/08/24 07:30 Respiratory Pattern Normal 01/08/24 07:30 Blood Pressure 105/62 01/08/24 09:25 Blood Pressure Mean 75 01/08/24 09:25 Blood Pressure Position Supine 01/08/24 07:30 Pulse Oximetry 97 01/08/24 09:25 Oxygen Delivery Method Room Air 01/08/24 07:30 Oxygen Flow Rate 0 01/08/24 07:30 Pain Level 0 01/08/24 07:30 Comment when coughing 01/07/24 18:13 Intake & Output 01/07/24 01/07/24 01/08/24 11:59 23:59 11:59 Intake Total 1000 / 1000 605.467 / 605.467 Balance 999 / 999 605.467 / 605.467 Weight 95.1 kg 95.1 kg Intake: IV 1000 / 999 155.467 / 155.467 Oral 450 / 450 Other: Comment h/o prostate cancer with some residual dribbling unknown amount due to incontinency times 2 Data Completed and Pending Labs on day of discharge: Labs from last 24 hours 01/08/24 01/08/24 01/08/24 09:12 05:50 05:30 WBC 6.89 RBC 4.36 Hgb 13.3 L Hct 39.0 L MCV 89 MCH 30.5 MCHC 34.1 RDW 13.5 Plt Count 199 MPV 10.6 Immature Gran % Neutrophils % Lymphocytes % Monocytes % Eosinophils % Basophils % Nucleated RBC % Absolute Neutrophils Absolute Lymphocytes Absolute Monocytes Absolute Eosinophils Absolute Basophils PT INR APTT 55.5 H Sodium 141 Potassium 3.7 Chloride 107 Carbon Dioxide 24.4 Anion Gap 9.6 BUN 15 Creatinine 1.0 Est GFR (CKD-EPI 2020) 81.47 Glucose 115 H Calcium 8.4 L Phosphorus Magnesium Total Bilirubin 0.56 AST 17 ALT 32 Alkaline Phosphatase 81 Troponin I 162 H* Total Protein 6.8 Albumin 2.9 L Triglycerides 146 Total Cholesterol 186 LDL Cholesterol, Calc 118 H HDL Cholesterol 39 L TSH B. divergens/MO-1 PCR Babesia duncani (PCR) Babesia microti DNA PCR B. pertussis IgG Ab Pending B. pertussis IgG Intrp Pending Lyme Disease Antibody COVID-19 Source SARS-CoV-2 (PCR) E.chaffeensis DNA (PCR) E.ewingii/canis DNA PCR E.muris eauclairensis (PCR) Influenza Type A (PCR) Influenza Type B (PCR) RSV (PCR) A. phagocytophilum (PCR) Blood B. miyamotoi (PCR) 01/08/24 01/08/24 01/07/24 02:05 00:12 21:27 WBC RBC Hgb Hct MCV MCH MCHC RDW Plt Count MPV Immature Gran % Neutrophils % Lymphocytes % Monocytes % Eosinophils % Basophils % Nucleated RBC % Absolute Neutrophils Absolute Lymphocytes Absolute Monocytes Absolute Eosinophils Absolute Basophils PT INR APTT 41.7 H Sodium Potassium Chloride Carbon Dioxide Anion Gap BUN Creatinine Est GFR (CKD-EPI 2020) Glucose Calcium Phosphorus Magnesium Total Bilirubin AST ALT Alkaline Phosphatase Troponin I 178 H* 177 H* Total Protein Albumin Triglycerides Total Cholesterol LDL Cholesterol, Calc HDL Cholesterol TSH B. divergens/MO-1 PCR Babesia duncani (PCR) Babesia microti DNA PCR B. pertussis IgG Ab B. pertussis IgG Intrp Lyme Disease Antibody COVID-19 Source Nasopharynx SARS-CoV-2 (PCR) Negative E.chaffeensis DNA (PCR) E.ewingii/canis DNA PCR E.muris eauclairensis (PCR) Influenza Type A (PCR) Negative Influenza Type B (PCR) Negative RSV (PCR) Negative A. phagocytophilum (PCR) Blood B. miyamotoi (PCR) 01/07/24 01/07/24 01/07/24 20:11 19:07 18:31 WBC 7.73 RBC 4.83 Hgb 14.7 Hct 44.3 MCV 92 MCH 30.4 MCHC 33.2 RDW 13.5 Plt Count MPV Immature Gran % 0.5 Neutrophils % 66.4 Lymphocytes % 21.1 Monocytes % 7.8 Eosinophils % 3.8 Basophils % 0.4 Nucleated RBC % 0.0 Absolute Neutrophils 5.14 Absolute Lymphocytes 1.63 Absolute Monocytes 0.60 Absolute Eosinophils 0.29 Absolute Basophils 0.03 PT 10.4 INR 1.0 APTT 25.9 Sodium 144 Cancelled Potassium 3.9 Cancelled Chloride 109 H Cancelled Carbon Dioxide 25.5 Cancelled Anion Gap 9.5 Cancelled BUN 19 H Cancelled Creatinine 1.2 Cancelled Est GFR (CKD-EPI 2020) 65.46 Cancelled Glucose 108 H Cancelled Calcium 8.6 Cancelled Phosphorus 3.2 Magnesium 2.1 Cancelled Total Bilirubin 0.36 Cancelled AST 22 Cancelled ALT 41 Cancelled Alkaline Phosphatase 98 Cancelled Troponin I 194 H* Cancelled Total Protein 7.8 Cancelled Albumin 3.5 Cancelled Triglycerides Total Cholesterol LDL Cholesterol, Calc HDL Cholesterol TSH 3.36 Cancelled B. divergens/MO-1 PCR Pending Babesia duncani (PCR) Pending Babesia microti DNA PCR Pending B. pertussis IgG Ab B. pertussis IgG Intrp Lyme Disease Antibody Pending COVID-19 Source SARS-CoV-2 (PCR) E.chaffeensis DNA (PCR) Pending E.ewingii/canis DNA PCR Pending E.muris eauclairensis (PCR) Pending Influenza Type A (PCR) Influenza Type B (PCR) RSV (PCR) A. phagocytophilum (PCR) Pending Blood B. miyamotoi (PCR) Pending [facility] All Active Problems (Updated 01/08/24 @ 11:16 by Charles Ramirez MD) Third degree AV block (Acute) Cough (Acute) Hyperlipidemia (Chronic) First degree atrioventricular block (Acute) Junctional bradycardia (Acute) NSTEMI (non-ST elevated myocardial infarction) (Acute) Primary osteoarthritis of right knee (Acute) Surgical History History of right shoulder replacement x2 Social History Smoking/Tobacco Use Status: Never Smoking risk assessment performed?: Yes Alcohol Intake: current Alcohol Intake frequency: holidays/special occasions only Alcohol type: beer Drug use: Never Substance use type: does not use Housing: house Do you feel safe at home: Yes Do you feel safe in your relationship?: Yes Additional Social history: at side, very supportive Time Spent with Patient Time Spent with Patient: <45 minutes Time was spent: preparing to see the patient(eg.review tests), obtaining and/or reviewing separately otained hiistory, referring, communicating with other [facility] adult daycare coordinator, indepentently interpreting results, counseling the patient and care coordination
[2024-01-08] MEDS: Heparin in 0.45% NaCl 25,000 UNIT/250 ML BAG 12 UNIT IV (12:55)
[2024-01-08] MEDS: Polyethylene Glycol 3350 17 GM PACKET PO (16:37)
[2024-01-08] MEDS: Senna TAB 1 TAB PO (16:37)
[2024-01-11 12:46] LABS: Lyme Ab w Rflx to Lyme Confirm Positive (Negative)
[2024-01-11 14:02] LABS: Lyme IgG Ab Positive (Negative); Lyme IgM Ab Positive (Negative)
[2024-01-11 17:24] LABS: Anaplasma phagocytophilum Negative (Negative); B. miyamotoi PCR Negative (Negative); Babesia divergens/MO-1 Negative (Negative); Babesia duncani Negative (Negative); Babesia microti Negative (Negative); Ehrlichia chaffeensis Negative (Negative); Ehrlichia ewingii/canis Negative (Negative); Ehrlichia muris eauclairensis Negative (Negative)
[2024-01-14 12:54] LABS: B. pertussis IgG Negative (Negative); B. pertussis Value 24.76 IU/mL
== END 2024-01-08 19:25 | disposition short-term general hospital (02) | DRG 281 ==
LOC: ER 22:33 → ICU 23:27
PROVIDERS: Internal Medicine; Admitting Provider Family Medicine; Emergency Provider Nurse Practitioner Family; Visit Provider Family Medicine
DX: I21.4 Non-ST elevation (NSTEMI) myocardial infarction (principal); A37.90 Whooping cough, unspecified species without pneumonia; I44.2 Atrioventricular block, complete; I95.9 Hypotension, unspecified; Z79.899 Other long term (current) drug therapy; G47.00 Insomnia, unspecified; Z85.46 Personal history of malignant neoplasm of prostate; M17.11 Unilateral primary osteoarthritis, right knee; E78.5 Hyperlipidemia, unspecified; R00.1 Bradycardia, unspecified
CPT/HCPCS: 00123; 36415; 80053; 80061; 85027; 86615; 86617; 87637; 87798; 93005; 96361; 96365; 96366; 99285; 71045; 71046; 83735; 84100; 84443; 84484; 85025; 85610; 85730; 86618; 93010; 93306; 99223; 99238; J1644